=== PATIENT | female | born 1970 | race Caucasian/White ===

== ENCOUNTER 2024-03-24 11:23 | Day surgery (SDC) | payer BC, OTHER ==
[~2024-03-24 11:23] MED LIST: Midazolam 1 MG/ML 2 ML SDV ONE; Propofol 200 MG/20 ML SDV ONE
[2024-03-24] MEDS ORDERED: Sodium Chloride 0.9% 10 ML Syringe FLUSH PRN (11:30)
[2024-03-24] MEDS: Lactated Ringers 1,000 ML IV SCH (12:00)
[2024-03-24] MEDS ORDERED: Glycopyrrolate 0.2 MG/ML SDV IVPUSH ONE (12:16)
[2024-03-24] MEDS ORDERED: Lidocaine 1% 5 ML VIAL ONE (12:16)
== END 2024-03-24 13:07 | disposition home or self-care (01) ==
LOC: LL.SDS 11:23
PROVIDERS: ATTEND Surgery
DX: K21.9 Gastro-esophageal reflux disease without esophagitis (principal); Z88.0 Allergy status to penicillin; Z88.1 Allergy status to other antibiotic agents; Z88.2 Allergy status to sulfonamides; Z88.5 Allergy status to narcotic agent; Z88.8 Allergy status to other drugs, medicaments and biological substances; Z90.49 Acquired absence of other specified parts of digestive tract
CPT/HCPCS: 00731; 43239; J2250; J2704; J3490; J7120